=== PATIENT | male | born 1960 | race Caucasian/White ===

== ENCOUNTER 2019-09-20 10:16 | Emergency (ER) | payer OTHER ==
[~2019-09-20] VITALS: Ht 182.8 cm; Wt 90.7 kg
[2019-09-20 10:47] LABS: BASO # 0.1 10*3/uL (0.0-0.1); BASO % 0.8 % (0.0-1.0); EOS # 0.1 10*3/uL (0.0-0.4); EOS % 1.3 % (1.0-4.0); HEMATOCRIT 44.6 % (42.0-52.0); HEMOGLOBIN 14.8 g/dl (14.0-18.0); LYMPH # 1.4 10*3/uL (1.3-4.4); LYMPH % 17.9 % (27.0-41.0); MEAN CELL VOLUME 92.7 fl (80.0-94.0); MEAN CORPUSCULAR HGB 30.8 pg (27.0-31.0); MEAN CORPUSCULAR HGB CONC 33.2 g/dl (33.0-37.0); MEAN PLATELET VOLUME 10.3 fl (9.6-12.3); MONO # 0.6 10*3/uL (0.1-1.0); MONO % 7.7 % (3.0-9.0); NEUT # 5.6 10*3/uL (2.3-7.9); NEUT % 71.8 % (47.0-73.0); PLATELET COUNT AUTOMATED 255 10*3/uL (130-400); RED BLOOD COUNT 4.81 10*6/uL (4.50-5.90); RED CELL DISTRI WIDTH 12.2 % (0-14.5); WHITE BLOOD COUNT 7.8 10*3/uL (4.8-10.8)
[2019-09-20 11:03] LABS: ACT PARTIAL THROMBO TIME 23.8 SECONDS (20.0-32.1); ALBUMIN 3.8 gm/dl (3.1-4.5); ALKALINE PHOSPHATASE 69 U/L (45-117); BUN 13 mg/dl (7-24); CHLORIDE 105 mmol/L (98-107); CREATININE 1.07 mg/dL (0.70-1.30); INTERNATIONAL NORM RATIO 0.9 (2.0-3.5); LIPASE 52 U/L (73-393); POTASSIUM 4.1 mmol/L (3.5-5.1); SGOT/AST 19 IU/L (3-35); SGPT/ALT 34 U/L (12-78); SODIUM 138 mmol/L (136-145); TOTAL PROTEIN 6.9 gm/dL (6.4-8.2)
[2019-09-20 11:06] LABS: TROPONIN I < 0.015 ng/ml (<0.045)
== END 2019-09-20 15:09 | disposition short-term general hospital (02) ==
LOC: ED 10:16
PROVIDERS: Emergency Medicine
DX: S27.0XXA Traumatic pneumothorax, initial encounter (principal); S22.42XA Multiple fractures of ribs, left side, initial encounter for closed fracture; S42.102A Fracture of unspecified part of scapula, left shoulder, initial encounter for closed fracture; I10 Essential (primary) hypertension; G89.29 Other chronic pain; Z88.0 Allergy status to penicillin; W00.1XXA Fall from stairs and steps due to ice and snow, initial encounter; Y93.89 Activity, other specified; Y92.89 Other specified places as the place of occurrence of the external cause; Y99.8 Other external cause status

== ENCOUNTER → 2022-03-12 | Outpatient (CLI) | payer OTHER | LOC: US 03-05 09:00 → CT 03-05 09:00 → US 02:14 → CT 09:00 → US 10:00 | PROVIDERS: ATTEND Family Medicine | DX: I25.119 Atherosclerotic heart disease of native coronary artery with unspecified angina pectoris (principal); M54.9 Dorsalgia, unspecified; I10 Essential (primary) hypertension ==

== ENCOUNTER → 2022-03-19 | Outpatient (CLI) | payer OTHER ==
[2022-03-19 09:21] LABS: CREATININE 0.96 mg/dL (0.70-1.30)
== END | disposition home or self-care (01) ==
LOC: CT 03-05 09:00
PROVIDERS: ATTEND Family Medicine
DX: K76.0 Fatty (change of) liver, not elsewhere classified (principal); K43.9 Ventral hernia without obstruction or gangrene; J98.11 Atelectasis; I25.10 Atherosclerotic heart disease of native coronary artery without angina pectoris; K76.89 Other specified diseases of liver; N28.1 Cyst of kidney, acquired; I70.0 Atherosclerosis of aorta; K42.9 Umbilical hernia without obstruction or gangrene; K57.30 Diverticulosis of large intestine without perforation or abscess without bleeding

== ENCOUNTER 2023-12-25 09:55 | Emergency (ER) | payer MEDICARE ==
[~2023-12-25] VITALS: Ht 185.4 cm; Wt 91.2 kg
[2023-12-25] MEDS ORDERED: CEPHALEXIN500 M1 PO (10:23)
[2023-12-25] MEDS ORDERED: Tdap Vaccine 0.5 ML SYR (Adult Vaccine) IM ONE (11:00)
== END 2023-12-25 11:24 | disposition home or self-care (01) ==
LOC: ED 09:55
DX: S61.412A Laceration without foreign body of left hand, initial encounter (principal); I10 Essential (primary) hypertension; F41.9 Anxiety disorder, unspecified; F32.A Depression, unspecified; Z88.0 Allergy status to penicillin; Z98.890 Other specified postprocedural states; W22.8XXA Striking against or struck by other objects, initial encounter; Y93.E9 Activity, other interior property and clothing maintenance; Y92.89 Other specified places as the place of occurrence of the external cause; Y99.8 Other external cause status

== ENCOUNTER 2024-05-10 10:38 | Emergency (ER) | payer MEDICARE ==
[~2024-05-10] VITALS: Ht 185.4 cm; Wt 89.8 kg
[~2024-05-10 10:38] MED LIST changes: -BRILINTA90 M1 PO; -CYMBALTA60 MG PO; -DONEPEZIL HCL10 MG PO; -FLOMAX0.4 MG PO; -ISOSORBIDE DINI30 MG PO; -MEDROL DOSEPAK4 MG PO; -MEMANTINE HCL10 MG PO; -OMEPRAZOLE10 MG PO; -ROSUVASTATIN CA20 MG PO; -TOPROL XL25 MG PO; -VITAMIN B121000 MC1 PO
[2024-05-10] MEDS ORDERED: ROSUVASTATIN CA20 MG PO (11:26)
[2024-05-10] MEDS ORDERED: TOPROL XL25 MG PO (11:27)
[2024-05-10] MEDS ORDERED: DONEPEZIL HCL10 MG PO (11:27)
[2024-05-10] MEDS ORDERED: OMEPRAZOLE10 MG PO (11:27)
[2024-05-10] MEDS ORDERED: FLOMAX0.4 MG PO (11:28)
[2024-05-10] MEDS ORDERED: MEMANTINE HCL10 MG PO (11:28)
[2024-05-10] MEDS ORDERED: ISOSORBIDE DINI30 MG PO (11:28)
[2024-05-10] MEDS ORDERED: VITAMIN B121000 MC1 PO (11:28)
[2024-05-10] MEDS ORDERED: BRILINTA90 M1 PO (11:29)
[2024-05-10] MEDS ORDERED: CYMBALTA60 MG PO (11:29)
[2024-05-10] MEDS ORDERED: FAMOTIDINE 50 ML IV ONE (11:45)
[2024-05-10] MEDS ORDERED: SODIUM CHLORIDE 0.9% 1,000 ML IV ONE (11:45)
[2024-05-10] MEDS ORDERED: methylPREDNISolone sod succ 125 MG VIAL IV ONE (11:45)
[2024-05-10] MEDS ORDERED: MEDROL DOSEPAK4 MG PO (13:19)
== END 2024-05-10 11:39 | disposition home or self-care (01) ==
LOC: ED 10:38
DX: T63.441A Toxic effect of venom of bees, accidental (unintentional), initial encounter (principal); S00.83XA Contusion of other part of head, initial encounter; I10 Essential (primary) hypertension; F17.200 Nicotine dependence, unspecified, uncomplicated; Z88.0 Allergy status to penicillin; Z79.899 Other long term (current) drug therapy; Z98.890 Other specified postprocedural states; Y93.89 Activity, other specified; Y92.89 Other specified places as the place of occurrence of the external cause; Y99.8 Other external cause status

== ENCOUNTER → 2024-05-10 | Outpatient (CLI) | payer MEDICARE ==
[~2024-05-10] MED LIST: BRILINTA90 M1 PO; CEPHALEXIN500 M1 PO; CYMBALTA60 MG PO; DONEPEZIL HCL10 MG PO; FLOMAX0.4 MG PO; ISOSORBIDE DINI30 MG PO; MEDROL DOSEPAK4 MG PO; MEMANTINE HCL10 MG PO; OMEPRAZOLE10 MG PO; ROSUVASTATIN CA20 MG PO; TOPROL XL25 MG PO; VITAMIN B121000 MC1 PO
== END | disposition home or self-care (01) ==
LOC: RAD 00:22
PROVIDERS: ATTEND Family Medicine
DX: M53.86 Other specified dorsopathies, lumbar region (principal); M54.16 Radiculopathy, lumbar region; M79.642 Pain in left hand